=== PATIENT | female | born 1955 | race Caucasian/White ===

== ENCOUNTER 2017-10-09 13:21 | Inpatient (IN) | payer MEDICARE, BC ==
[~2017-10-09] VITALS: Ht 167.6 cm; Wt 75.8 kg
--- OUTSIDE RECORDS SUMMARY | ~2017-10-09 | XMS | Clinical Summary ---
Demographics + + + | Address | [address] | | | [place] [address] | + + + | Home Phone | | + + + | Preferred Language | Unknown | + + + | Marital Status | | + + + | Islam Affiliation | Unknown | + + + | Race | Unknown | + + + | Ethnic Group | Unknown | + + + Author + + + | Author | [facility] | + + + | Organization | [facility] | + + + | Address | Unknown | + + + | Phone | Unavailable | + + + Support + + + + + | Name | Relationship | Address | Phone | + + + + + | Nicholas Garber | [place] | [address] | | | | | [place] | | | | | [address] | | + + + + + Care Team Providers + +------+ + | Care Direct Sales Representative Name | Role | Phone | + +------+ + | Ishmael De La Torre DO | PP | | + +------+ + Allergies + + + + + + | Active Allergy | Reactions | Severity | Noted | Comments | | | | | Date | | + + + + + + | Fendiline | Other (See Comments) | Medium | 08/18/19 | Pt did not specify | | | | | 13 | | + + + + + + | Pregabalin | Other (See Comments) | Medium | 08/18/19 | Pt did not specify | | | | | 13 | | + + + + + + | Methadone | Other (See Comments) | Medium | 08/18/19 | Pt did not specify | | | | | 13 | | + + + + + + | Morphine | Other (See Comments) | Medium | 08/18/19 | Pt did not specify | | | | | 13 | | + + + + + + | Gabapentin | Other (See Comments) | Medium | 08/18/19 | Pt did not specify | | | | | 13 | | + + + + + + | Oxycodone | Other (See Comments) | Medium | 08/18/19 | Pt did not specify | | | | | 13 | | + + + + + + | Sulfa Antibiotics | Other (See Comments) | Medium | 08/18/19 | Pt did not specify | | | | | 13 | | + + + + + + | Vancomycin | Abdominal Pain | Low | 08/18/19 | Pt did not specify | | | | | 13 | | + + + + + + Current Medications + + +-------+---------+------+------+-------+ | Prescription | Sig. | Disp. | Refills | Star | End | Statu | | | | | | t | Date | s | | | | | | Date | | | + + +-------+---------+------+------+-------+ | fentaNYL | Place 1 patch onto | | | | | Activ | | (DURAGESIC) 75 | the skin every third | | | | | e | | MCG/HR | day. | | | | | | + + +-------+---------+------+------+-------+ | | Take by mouth. | | | | | Activ | | Oxycodone-Acetaminop | | | | | | e | | hen (PERCOCET PO) | | | | | | | + + +-------+---------+------+------+-------+ | simvastatin | Take 40 mg by mouth | | | | | Activ | | (ZOCOR) 40 MG tablet | nightly. | | | | | e | + + +-------+---------+------+------+-------+ | tiZANidine | Take 4 mg by mouth | | | | | Activ | | (ZANAFLEX) 4 MG | every 6 (six) hours | | | | | e | | tablet | as needed. | | | | | | + + +-------+---------+------+------+-------+ | zolpidem (AMBIEN) | Take 10 mg by mouth | | | | | Activ | | 10 MG tablet | nightly as needed. | | | | | e | + + +-------+---------+------+------+-------+ | lisinopril | Take 10 mg by mouth | | | | | Activ | | (PRINIVIL,ZESTRIL) | daily. | | | | | e | | 10 MG tablet | | | | | | | + + +-------+---------+------+------+-------+ | meloxicam (MOBIC) | Take 7.5 mg by mouth | | | | | Activ | | 7.5 MG tablet | daily. | | | | | e | + + +-------+---------+------+------+-------+ | nortriptyline | Take 75 mg by mouth | | | | | Activ | | (PAMELOR) 75 MG | nightly. | | | | | e | | capsule | | | | | | | + + +-------+---------+------+------+-------+ | cyclobenzaprine | Take 10 mg by mouth | | | | | Activ | | (FLEXERIL) 10 MG | 3 (three) times | | | | | e | | tablet | daily as needed. | | | | | | + + +-------+---------+------+------+-------+ Active Problems + + + | Problem | Noted Date | + + + | Low back pain | 10/01/2012 | + + + | Numbness | 08/18/2012 | + + + Family History + + +------+ + | Medical History | Relation | Name | Comments | + + +------+ + | Other (see comments) | Father | | "Gout" per patient | + + +------+ + | Cancer | Mother | | Breast | + + +------+ + | Diabetes | Other | | | + + +------+ + + +------+--------+ + | Relation | Name | Status | Comments | + +------+--------+ + | Father | | | | + +------+--------+ + | Mother | | | | + +------+--------+ + | Other | | | | + +------+--------+ + Social History + +-------+ +--------+------+ | Tobacco Use | Types | Packs/Day | Years | Date | | | | | Used | | + +-------+ +--------+------+ | Former Smoker | | | | | + +-------+ +--------+------+ + + +---------+ + | Alcohol Use | Drinks/We | oz/Week | Comments | | | ek | | | + + +---------+ + | No | | | | + + +---------+ + + + + | Sex Assigned at | Date Recorded | | | | + + + | Not on file | | + + + Last Filed Vital Signs + + + + | Vital Sign | Reading | Time Taken | + + + + | Blood Pressure | 143/86 | 11/02/2012 10:27 AM PDT | + + + + | Pulse | 103 | 11/02/2012 10:27 AM PDT | + + + + | Temperature | - | - | + + + + | Respiratory Rate | - | - | + + + + | Oxygen Saturation | - | - | + + + + | Inhaled Oxygen | - | - | | Concentration | | | + + + + | Weight | 74.8 kg (165 lb) | 11/02/2012 10:27 AM PDT | + + + + | Height | 172.7 cm (5' 8") | 11/02/2012 10:27 AM PDT | + + + + | Body Mass Index | 25.09 | 11/02/2012 10:27 AM PDT | + + + + Plan of Treatment + + + + + | Health Maintenance | Due Date | Last Done | Comments | + + + + + | Vaccine: | | | | | Dtap/Tdap/Td (1 - | 4 | | | | Tdap) | | | | + + + + + | Cervical Cancer | | | | | Screening (Pap) | 6 | | | + + + + + | Breast Cancer | | | | | Screening | 5 | | | | (Mammogram) | | | | + + + + + | Colon Cancer | | | | | Screening | 5 | | | | (Colonoscopy) | | | | + + + + + | Vaccine: Zoster (#1) | | | | | | 5 | | | + + + + + | Vaccine: Influenza | | | | | (Season Ended) | 8 | | | + + + + + Results Not on filefrom Last 3 Months Insurance + +--------+ +------+-------+ + | Payer | Benefi | Subscriber | Type | Phone | Address | | | t Plan | ID | | | | | | / | | | | | | | Group | | | | | + +--------+ +------+-------+ + | MEDICARE | MEDICA | xxxxxxxxxx | | | [address] | | | RE | | | | [place] [id number] | | | IP-OP | | | | | + +--------+ +------+-------+ + | PREMERA | PREMER | xxxxxxxxxxx | | | [address] [address] | | | A BLUE | x | | | [place] | | | CARD | | | | [phone] | + +--------+ +------+-------+ + + +--------+ +--------+ + + | Guarantor Name | Accoun | Relation to | Date | Phone | Billing Address | | | t Type | Patient | of | | | | | | | | | | + +--------+ +--------+ + + | FARZAD GARBER | Person | Self [birth year] Home: | [address] | | | al/Fam | | 1955 | [phone] [place] | | | [place] | | | [phone] | [phone] | + +--------+ +--------+ + +
--- OUTSIDE RECORDS SUMMARY | ~2017-10-09 | XMS | Clinical Summary ---
Demographics + + + | Address | [address] | | | [place] [address] | + + + | Home Phone | | + + + | Preferred Language | Unknown | + + + | Marital Status | | + + + | Jewish Affiliation | Unknown | + + + | Race | Unknown | + + + | Ethnic Group | Unknown | + + + Author + + + | Author | [facility] | + + + | Organization | [facility] | + + + | Address | Unknown | + + + | Phone | Unavailable | + + + Support + + + + + | Name | Relationship | Address | Phone | + + + + + | Nicholas Garber | [place] | [address] | | | | | [place] | | | | | [address] | | + + + + + Care Team Providers + +------+ + | Care Etcher Apprentice Name | Role | Phone | + [...] | xxxxxxxxxx | | | [address] | | | RE | | | | [place] [phone] | | | IP-OP | | | | | + +--------+ +------+-------+ + | PREMERA | PREMER | [phone] | | | [address] [address] | | | A BLUE | x | | | [place] | | | CARD | | | | [phone] | + +--------+ +------+-------+ + + +--------+ [...] [birth year] Home: | [address] | | | al/Fam | | 1955 | [phone] [place] | | | [place] | | | [address] | [phone] | + +--------+ +--------+ + +
--- OUTSIDE RECORDS SUMMARY | ~2017-10-09 | XMS | Clinical Summary ---
Demographics + + + | Address | [address] | | | [place] [address] | + + + | Home Phone | | + + + | Preferred Language | Unknown | + + + | Marital Status | | + + + | Mormonism Affiliation | 1013 | + + + | Race | Unknown | + + + | Ethnic Group | Unknown | + + + Author + + + | Author | [facility] | | | and [place] | + + + | Organization | [facility] | | | and [facility] | + + + | Address | Unknown | + + + | Phone | Unavailable | + + + Support + + +---------+ + | Name | Relationship | Address | Phone | + + +---------+ + | Nicholas Garber | [place] | Unknown | | + + +---------+ + Care Team Providers + +------+ + | Care Wood Sash And Frame Carpenter Name | Role | Phone | + +------+ + | Ishmael De La Torre DO | PP | | + +------+ + Allergies + + + + + + | Active Allergy | Reactions | Severity | Noted | Comments | | | | | Date | | + + + + + + | Gabapentin | Other (See Comments) | Low | 09/07/19 | Weight gain | | | | | 15 | (almost 100 lbs) | + + + + + + | Methadone | Other (See Comments) | Medium | 09/07/19 | hallucinations | | | | | 15 | | + + + + + + | Morphine | Other (See Comments) | Medium | 09/07/19 | hallucinations | | | | | 15 | | + + + + + + | Oxycodone | Other (See Comments) | Low | 09/07/19 | "sweaty & drowsy" | | | | | 15 | | + + + + + + | Pregabalin | Other (See Comments) | Medium | 09/07/19 | hallucinations | | | | | 15 | | + + + + + + | Sulfa Antibiotics | Rash | Low | 09/07/19 | | | | | | 15 | | + + + + + + | Vancomycin | Other (See Comments) | High | 09/07/19 | Kidney failure | | | | | 15 | | + + + + + + Current Medications + + +-------+---------+------+------+-------+ | Prescription | Sig. | Disp. | Refills | Star | End | Statu | | | | | | t | Date | s | | | | | | Date | | | + + +-------+---------+------+------+-------+ | buPROPion | Take 300 mg by mouth | | | | | Activ | | (WELLBUTRIN XL) 300 | every morning. | | | | | e | | mg 24 hr tablet | | | | | | | + + +-------+---------+------+------+-------+ | fentaNYL | Place 1 patch onto | | | | | Activ | | (DURAGESIC) 75 | the skin every 72 | | | | | e | | mcg/hr | hours. | | | | | | + + +-------+---------+------+------+-------+ | fexofenadine | Take 30 mg by mouth | | | | | Activ | | (WALLY) 30 MG | 2 times daily. | | | | | e | | tablet | | | | | | | + + +-------+---------+------+------+-------+ | fluticasone | 1 spray by Nasal | | | | | Activ | | (FLONASE) 50 | route Daily. | | | | | e | | mcg/nasal spray | | | | | | | + + +-------+---------+------+------+-------+ | lisinopril | Take 10 mg by mouth | | | | | Activ | | (PRINIVIL, ZESTRIL) | Daily. | | | | | e | | 10 mg tablet | | | | | | | + + +-------+---------+------+------+-------+ | LORazepam (ATIVAN) | Take 1 mg by mouth | | | | | Activ | | 1 mg tablet | every 6 hours as | | | | | e | | | needed for Anxiety. | | | | | | + + +-------+---------+------+------+-------+ | nortriptyline | Take 75 mg by mouth | | | | | Activ | | (PAMELOR) 75 mg | nightly. | | | | | e | | capsule | | | | | | | + + +-------+---------+------+------+-------+ | | Take 1 tablet by | | | | | Activ | | oxyCODONE-acetaminop | mouth every 4 hours | | | | | e | | hen (PERCOCET) | as needed for Pain. | | | | | | | 7.5-325 mg per | | | | | | | | tablet | | | | | | | + + +-------+---------+------+------+-------+ | simvastatin | Take 20 mg by mouth | | | | | Activ | | (ZOCOR) 40 mg tablet | nightly. | | | | | e | + + +-------+---------+------+------+-------+ | tiZANidine | Take 4 mg by mouth | | | | | Activ | | (ZANAFLEX) 4 mg | every 6 hours as | | | | | e | | tablet | needed. | | | | | | + + +-------+---------+------+------+-------+ | traZODone | Take 100-200 mg by | | | | | Activ | | (DESYREL) 100 mg | mouth nightly. | | | | | e | | tablet | | | | | | | + + +-------+---------+------+------+-------+ | Albuterol | Inhale 1 puff into | | | | | Activ | | (VENTOLIN IN) | the lungs as needed. | | | | | e | + + +-------+---------+------+------+-------+ Active Problems + + + | Problem | Noted Date | + + + | YVETTE (obstructive sleep apnea) | 09/08/2014 | + + + | HTN (hypertension) | 09/08/2014 | + + + | Fibromyalgia | 09/08/2014 | + + + | Spina bifida (HCC) | 09/08/2014 | + + + | Anxiety | 09/08/2014 | + + + | Claustrophobia | 09/08/2014 | + + + | Atrial fibrillation (HCC) | 09/08/2014 | + + + | Depression | 09/08/2014 | + + + | RLS (restless legs syndrome) | 09/08/2014 | + + + | Hypercholesteremia | 09/08/2014 | + + + | Chronic pain syndrome | 09/08/2014 | + + + | Asthma | 09/08/2014 | + + + Social History + + + +--------+ + | Tobacco Use | Types | Packs/Day | Years | Date | | | | | Used | | + + + +--------+ + | Former Smoker | Cigarettes | 0.5 | 8 | Quit: 06/23/1984 | + + + +--------+ + + +---+---+---+ | Smokeless Tobacco: | | | | | Never Used | | | | + +---+---+---+ + + +---------+ + | Alcohol Use [...] + + + | Blood Pressure | 127/66 | 09/10/2014519 PDT | + + + + | Pulse | 75 | 09/10/2014519 PDT | + + + + | Temperature | 36.2 C (97.2 F) | 09/10/2014519 PDT | + + + + | Respiratory Rate | 18 | 09/10/2014519 PDT | + + + + | Oxygen Saturation | 96% | 09/10/2014519 PDT | + + + + | Inhaled Oxygen | - | - | | Concentration | | | + + + + | Weight | 83.5 kg (184 lb 1.4 | 09/08/2014751 PDT | | | oz) | | + + + + | Height | 170.2 cm (5' 7.01") | 09/08/2014751 PDT | + + + + | Body Mass Index | 28.82 | 09/08/2014751 PDT | + + + + Plan of Treatment + + + + + | Health Maintenance | Due Date | Last Done | Comments | + + + + + | Hepatitis C | | | | | Screening | 5 | | | + + + + + | Vaccine: | | | | | Dtap/Tdap/Td (1 - | 4 | | | | Tdap) | | | | + + + + + | Vaccine: | | | | | Pneumococcal 19-64 | 4 | | | | (PPSV23 only) Medium | | | | | Risk (1 of 1 - | | | | | PPSV23) | | | | + + + + + | CERVICAL CANCER | | | | | SCREENING (PAP EVERY | 6 | | | | 3 YEARS 21-64 ) | | | | + + + + + | BREAST CANCER | | | | | SCREENING (MAMM Q2 | 5 | | | | YEARS 50-74) | | | | + + + + + | COLON CANCER | | | | | SCREENING | 5 | | | | (COLONOSCOPY EVERY | | | | | 10 YEARS 50-75) | | | | + + + + + | Vaccine: Zoster (#1) | | | | | | 5 | | | + + + + + | Vaccine: Influenza | | | | | (Season Ended) | 8 | | | + + + + + Implants + +------+--------+ +--------+--------+--------+ | Implanted | Type | Area | Manufacture | Device | Expira | Model | | | | | r | | tion | / | | | | | | Identi | Date | Serial | | | | | | fier | | / Lot | + +------+--------+ +--------+--------+--------+ | Imp Stem Hum Pressfit Eqx | | Right: | EXACTECH | | 07/24/ | 300-01 | | 13mm - [id number]: | | | INC - EXAT | | 2024 | -13 | | Qty: 1 on 09/08/2014 by | | Should | | | | /[id number] | | Manuel Muniz DO | | er | | | | 28 / | + +------+--------+ +--------+--------+--------+ | Equinoxe Cage Glenoid | | Right: | EXACTECH | | 02/21/ | 314-13 | | Implanted: Qty: 1 on | | | INC - EXAT | | 2018 | - | | 09/08/2014 by Flavio, | | Should | | | | /[id number] | | Manuel Delatorre DO | | er | | | | 61 / | + +------+--------+ +--------+--------+--------+ | Imp Shldr Honey Torq Defin - | | Right: | EXACTECH | | 06/23/ | 300-20 | | [id number]: Qty: 1 on | | | INC - EXAT | | 2019 | -02 | | 09/08/2014 by Flavio, | | Should | | | | /[id number] | | Manuel Delatorre DO | | er | | | | 52 / | + +------+--------+ +--------+--------+--------+ | Imp Lola Espinal Replic 4.5 | | Right: | EXACTECH | | 05/23/ | 300-10 | | - [id number]: Qty: 1 | | | INC - EXAT | | 2019 | -45 | | on 09/08/2014 by Flavio, | | Should | | | | /[id number] | | Manuel Delatorre DO | | er | | | | 67 / | + +------+--------+ +--------+--------+--------+ | Humeral HeadImplanted: Qty: 1 | | Right: | EXACTECH | | 01/09/ | 310-02 | | on 09/08/2014 by Flavio, | | | INC - EXAT | | 2021 | -44 | | Manuel Delatorre DO | | Should | | | | /[id number] | | | | er | | | | 22 / | + +------+--------+ +--------+--------+--------+ | Imp Shldsofie Tot Adv Interchg | | Right: | [employer] [place] - | | | [id number] / | | Adj - [id number]: | | | CAP | | | / | | Qty: 1 on 09/08/2014 by | | Should | | | | | | Manuel Muniz DO | | er | | | | | + +------+--------+ +--------+--------+--------+ Results Not on filefrom Last 3 Months Insurance + +--------+ +--------+ +---------+ | Payer | Benefi | Subscriber | Type | Phone | Address | | | t Plan | ID | | | | | | / | | | | | | | Group | | | | | + +--------+ +--------+ +---------+ | MEDICARE | MEDICA | xxxxxxxxxx | Medica | +- | | | | RE | | re | [phone] | | | | PART A | | | | | | | AND B | | | | | + +--------+ +--------+ +---------+ | [place] | [place] | xxxxxxxxxxx | Indemn | [phone] | | | [place] | x | ity | [phone] | | | | MDCR | | | | | | | SUPPL | | | | | + +--------+ +--------+ +---------+ + +--------+ +--------+ + + | Guarantor Name | Accoun | Relation to | Date | Phone | Billing Address | | | t Type | Patient | of | | | | | | | | | | + +--------+ +--------+ + + | FARZAD GARBER | Person | Self [birth year] | Home: | [address] | | [place] | al/Fam | | [phone] [place] [address] | | | [place] | | | [address] | | + +--------+ +--------+ + +
--- OUTSIDE RECORDS SUMMARY | ~2017-10-09 | XMS | Clinical Summary ---
Demographics + + + | Address | [address] | | | [place] [address] | + + + | Home Phone | | + + + | Preferred Language | Unknown | + + + | Marital Status | | + + + | Latter Day Affiliation | CAT | + + + | Race | White | + + + | Ethnic Group | Not or | + + + Author + + + | Author | [facility] | + + + | Organization | [facility] | + + + | Address | Unknown | + + + | Phone | Unavailable | + + + Support + + + + + | Name | Relationship | Address | Phone | + + + + + | EZIO GARBER | ECON | [address] | | | | | [place] | | | | | [address] | | + + + + + Care Team Providers + +------+ + | Care Lead Net Software Developer Name | Role | Phone | + +------+ + | Ishmael De La Torre DO | PP | | + +------+ + Source Comments ROHAN is fully live on both EpicCare Ambulatory and EpicCare InPatient.[facility] Allergies + + + + + + | Active Allergy | Reactions | Severity | Noted | Comments | | | | | Date | | + + + + + + | Fendiline | Nausea, Nausea and | | 04/06/20 | | | | Vomiting | | 08 | | + + + + + + | Pregabalin | | | 08/15/19 | hallucinations | | | | | 11 | | + + + + + + | Methadone | Hallucinations | | 08/09/19 | | | | | | 11 | | + + + + + + | Morphine | Hallucinations | Medium | 08/09/19 | | | | | | 11 | | + + + + + + | Gabapentin | | Medium | 08/09/19 | Weight gain. | | | | | 11 | | + + + + + + | Oxycodone | | High | 11/30/19 | sweating | | | | | 11 | | + + + + + + | Sulfa (Sulfonamide | Rash | High | 04/06/20 | | | Antibiotics) | | | 08 | | + + + + + + | Vancomycin | | High | 12/02/19 | Kidney failure | | | | | 11 | | + + + + + + Current Medications + + +-------+---------+------+------+-------+ | Prescription | Sig. | Disp. | Refills | Star | End | Statu | | | | | | t | Date | s | | | | | | Date | | | + + +-------+---------+------+------+-------+ | VITAMIN B COMPLEX | take 1 tablet by | | | | | Activ | | Oral Tablet | oral route once | | | | | e | | | daily | | | | | | + + +-------+---------+------+------+-------+ | lorazepam 2 mg | take 1 tablet (1 mg) | | | | | Activ | | Oral Tablet | by oral route 3 | | | | | e | | | times per day as | | | | | | | | needed | | | | | | + + +-------+---------+------+------+-------+ | simvastatin 40 mg | take 1 tablet (40 | | | | | Activ | | Oral Tablet | mg) by oral route | | | | | e | | | once daily in the | | | | | | | | evening | | | | | | + + +-------+---------+------+------+-------+ | ALBUTEROL SULFATE | Inhale as needed. | | | 07/24 | | Activ | | (VENTOLIN INHL) | | | | 01/09 | | e | | | | | | 11 | | | + + +-------+---------+------+------+-------+ | meloxicam 7.5 mg | Take 7.5 mg by mouth | | | | | Activ | | Oral Tablet | two times daily. | | | | | e | + + +-------+---------+------+------+-------+ | fentaNYL 75 mcg/hr | Apply 1 Patch to | | | | | Activ | | Transdermal Patch | skin every | | | | | e | | 72 hr | seventy-two hours. | | | | | | + + +-------+---------+------+------+-------+ | tiZANidine | Take 2 mg by mouth | | | | | Activ | | (ZANAFLEX) 2 mg Oral | as needed. Max: 36 | | | | | e | | Tablet | mg / day. | | | | | | + + +-------+---------+------+------+-------+ | | Take 1-2 Tabs by | | | | | Activ | | oxyCODONE-acetaminop | mouth every six | | | | | e | | hen (PERCOCET) 5-325 | hours as needed. Not | | | | | | | mg Oral Tablet | to exceed 12 | | | | | | | | tablets per any 24 | | | | | | | | hour period. | | | | | | + + +-------+---------+------+------+-------+ | nortriptyline 75 | Take 150 mg by mouth | | | | | Activ | | mg Oral Capsule | once daily at | | | | | e | | | bedtime. | | | | | | + + +-------+---------+------+------+-------+ | ZOLPIDEM TARTRATE | Take 20 mg by mouth | | | | | Activ | | (AMBIEN ORAL) | once daily at | | | | | e | | | bedtime. | | | | | | + + +-------+---------+------+------+-------+ | FEXOFENADINE HCL | Take by mouth as | | | | | Activ | | (WALLY ORAL) | needed. | | | | | e | + + +-------+---------+------+------+-------+ | lisinopril 10 mg | Take 10 mg by mouth | | | | | Activ | | Oral tablet | once daily. | | | | | e | + + +-------+---------+------+------+-------+ | cyclobenzaprine 10 | Take 10 mg by mouth | | | | | Activ | | mg Oral tablet | three times daily as | | | | | e | | | needed. Do not use | | | | | | | | longer than 2-3 | | | | | | | | weeks. | | | | | | + + +-------+---------+------+------+-------+ | buPROPion XL 300 | Take 300 mg by mouth | | | | | Activ | | mg Oral tablet | once daily in the | | | | | e | | extended release 24 | morning. | | | | | | | hr | | | | | | | + + +-------+---------+------+------+-------+ Active Problems + + + | Problem | Noted Date | + + + | Shoulder pain | 03/09/2012 | + + + | Hypertension | 02/18/2011 | + + + | Fibromyalgia | 02/18/2011 | + + + | S/P catheter ablation of slow pathway | 02/18/2011 | + + + | SVT (supraventricular tachycardia) ([facility]) | 12/03/2010 | + + + | Bone infection, shoulder region ([facility]) | 08/09/2010 | + + + | HTN (hypertension) | 08/09/2010 | + + + + + | Overview: ICD10 | + + + + + | Myalgia and myositis | 04/08/2008 | + + + + + | Overview: ICD10 | + + Family History + + +------+ + | Medical History | Relation | Name | Comments | + + +------+ + | Heart Disease | Mother | | CHF from Breast cancer therapy | + + +------+ + + +------+--------+ + | Relation | Name | Status | Comments | + +------+--------+ + | Mother | | | | + +------+--------+ + Social History + + + +--------+ + | Tobacco Use | Types | Packs/Day | Years | Date | | | | | Used | | + + + +--------+ + | Former Smoker | Cigarettes | 2 | 3 | Quit: 06/23/1983 | + + + +--------+ + + [...] + + + | Blood Pressure | 127/83 | 02/25/2013 12:06 PM PDT | + + + + | Pulse | 95 | 02/25/2013 12:06 PM PDT | + + + + | Temperature | 36.7 C (98.1 F) | 02/28/2012 2:49 PM PDT | + + + + | Respiratory Rate | 15 | 02/25/2013 12:06 PM PDT | + + + + | Oxygen Saturation | 98% | 02/28/2012 2:49 PM PDT | + + + + | Inhaled Oxygen | - | - | | Concentration | | | + + + + | Weight | 86.2 kg (190 lb) | 04/07/2014 10:40 AM PDT | + + + + | Height | 175.3 cm (5' 9") | 04/07/2014 10:40 AM PDT | + + + + | Body Mass Index | 28.06 | 04/07/2014 10:40 AM PDT | + + + + Plan of Treatment + + + + + | Health Maintenance | Due Date | Last Done | Comments | + + + + + | INFLUENZA VACCINE | | | | | (FLU SHOT) | 8 | | | + + + + + Results Not on filefrom Last 3 Months
--- OUTSIDE RECORDS SUMMARY | ~2017-10-09 | XMS | Clinical Summary ---
Demographics + + + | Address | [address] | | | [place] [address] | + + + | Home Phone | | + + + | Preferred Language | Unknown | + + + | Marital Status | | + + + | Mosque Affiliation | Unknown | + + + | Race | Unknown | + + + | Ethnic Group | Unknown | + + + Author + + + | Author | [facility] | + + + | Organization | [facility] | + + + | Address | Unknown | + + + | Phone | Unavailable | + + + Support + + + + + | Name | Relationship | Address | Phone | + + + + + | Nichloas Garber | [place] | [address] | | | | | [place] | | | | | [address] | | + + + + + Care Team Providers + +------+ + | Care Event Representative Name | Role | Phone | [...] | [phone] | | | [address] | | | RE | | | | [place] [phone] | | | IP-OP | | | | | + +--------+ +------+-------+ + | PREMERA | PREMER | [phone] | | | [address] [address] | | | A BLUE | [phone] | | | [place] | | | CARD | | | | [phone] | + +--------+ +------+-------+ + + +--------+ +--------+ + + | Guarantor Name | Accoun | Relation to | Date | Phone | Billing Address | | | t Type | Patient | of | | | | | | | | | | + +--------+ +--------+ + + | FARZAD GARBER | Person | Self [birth year] Home: | [address] | | | al/Fam | | [phone] | [phone] | [place] | | | [place] | | | [phone] | [phone] | + +--------+ +--------+ + +
--- OUTSIDE RECORDS SUMMARY | ~2017-10-09 | XMS | Clinical Summary ---
Demographics + + + | Address | [address] | | | [place] [address] | + + + | Home Phone | | + + + | Preferred Language | Unknown | + + + | Marital Status | | + + + | Uatsdin Affiliation | 1013 | + + + | Race | Unknown | + + + | Ethnic Group | Unknown | + + + Author + + + | Author | [facility] | | | and [place] | + + + | Organization | [facility] | | | and [place] [...] Team Providers + +------+ + | Care Quality Technician Fiberglass Name | Role | Phone | + [...] 07/24/ | 300-01 | | 13mm - [id number]: | | | INC - EXAT | | 2024 | -13 | | Qty: 1 on 09/08/2014 by | | Should | | | | /[id number] | | Manuel Muniz DO | | er | | | | 28 / | + +------+--------+ +--------+--------+--------+ | Equinoxe Cage Glenoid | | Right: | EXACTECH | | 02/21/ | 314-13 | | Implanted: Qty: 1 on | | | INC - EXAT | | 2018 | - | | 09/08/2014 by Flavio, | | Should | | | | /[id number] | | Manuel Delatorre DO | | er | | | | 61 / | + +------+--------+ +--------+--------+--------+ | Imp Shldr Honey Torq Defin - | | Right: | EXACTECH | | 06/23/ | 300-20 | | [id number]: Qty: 1 on | | | INC - EXAT | | 2019 | -02 | | 09/08/2014 by Flavio, | | Should | | | | /[id number] | | Manuel Delatorre DO | | er | | | | 52 / | + +------+--------+ +--------+--------+--------+ | Imp Lola Espinal Replic 4.5 | | Right: | EXACTECH | | 05/23/ | 300-10 | | - [id number]: Qty: 1 | | | INC - EXAT | | 2019 | -45 | | on 09/08/2014 by Flavio, | | Should | | | | /[id number] | | Manuel Delatorre DO | | er | | | | 67 / | + +------+--------+ +--------+--------+--------+ | Humeral HeadImplanted: Qty: 1 | | Right: | EXACTECH | | 01/09/ | 310-02 | | on 09/08/2014 by Flavio, | | | INC - EXAT | | 2021 | -44 | | Manuel Delatorre DO | | Should | | | | /[id number] | | | | er | | | | 22 / | + +------+--------+ +--------+--------+--------+ | Imp Shldsofie Tot Adv Interchg | | Right: | [place] - | | | OS1A / | | Adj - [id number]: | | | CAP | | | [...] | [phone] | [phone] | [place] [address] | | | leo | | | [address] | | + +--------+ +--------+ + +
--- OUTSIDE RECORDS SUMMARY | ~2017-10-09 | XMS | Clinical Summary ---
Demographics + + + | Address | [address] | | | [place] [address] | + + + | Home Phone | | + + + | Preferred Language | Unknown | + + + | Marital Status | | + + + | Islam Affiliation | CAT | + + + [...] [place] | | | | | [address] | | + + + + + Care Team Providers + +------+ + | Care Industrial Relations Manager Name | Role | Phone | + +------+ + | Ishmael De La Torre DO | PP | | + +------+ + Source Comments ROHAN is fully live on both EpicCare Ambulatory and EpicCare InPatient.[facility] Allergies + + + + + + [...] + + + | SVT (supraventricular tachycardia) ([facility]) | 12/03/2010 | + + + | Bone infection, shoulder region ([facility]) | 08/09/2010 | + + + [...]
--- OUTSIDE RECORDS SUMMARY | ~2017-10-09 | XMS | Clinical Summary ---
Demographics + + + | Address | [address] | | | [place] [address] | + + + | Home Phone [...] [place] | | | | | [phone] | | + + + + + Care Team Providers + +------+ + | Care Supervisor Veneer Name | Role | Phone | + +------+ + | Ishmael De La Torre DO | PP | | + +------+ + Source Comments ROHAN is fully live on both EpicCare Ambulatory and EpicCare InPatient.[facility] Allergies + + + + + + [...] + + + | SVT (supraventricular tachycardia) ([facility]) | 12/03/2010 | + + + | Bone infection, shoulder region ([facility]) | 08/09/2010 | + + + | [...]
--- OUTSIDE RECORDS SUMMARY | ~2017-10-09 | XMS | Clinical Summary ---
Demographics + + + | Address | [address] | | | [place] [address] | + + + | Home Phone | | + + + | Preferred Language | Unknown | + + + | Marital Status | | + + + | Holiness Affiliation | 1013 | + + + | Race | Unknown | + + + | Ethnic Group | Unknown | + + + Author + + + | Author | [facility] | | | and [place] | + + + | Organization | [facility] | | | and [place] | [...] Team Providers + +------+ + | Care Cartridge Maker Name | Role | Phone | + [...] 07/24/ | 300-01 | | 13mm - [id number]: | | | INC - EXAT | | 2024 | -13 | | Qty: 1 on 09/08/2014 by | | Should | | | | /[id number] | | Manuel Muniz DO | | er | | | | 28 / | + +------+--------+ +--------+--------+--------+ | Equinoxe Cage Glenoid | | Right: | EXACTECH | | 02/21/ | 314-13 | | Implanted: Qty: 1 on | | | INC - EXAT | | 2018 | - | | 09/08/2014 by Flavio, | | Should | | | | /[id number] | | Manuel Delatorre DO | | er | | | | 61 / | + +------+--------+ +--------+--------+--------+ | Imp Shldr Honey Torq Defin - | | Right: | EXACTECH | | 06/23/ | 300-20 | | [id number]: Qty: 1 on | | | INC - EXAT | | 2019 | -02 | | 09/08/2014 by Flavio, | | Should | | | | /[id number] | | Manuel Delatorre DO | | er | | | | 52 / | + +------+--------+ +--------+--------+--------+ | Imp Lola Espinal Replic 4.5 | | Right: | EXACTECH | | 05/23/ | 300-10 | | - [id number]: Qty: 1 | | | INC - EXAT | | 2019 | -45 | | on 09/08/2014 by Flavio, | | Should | | | | /[id number] | | Manuel Delatorre DO | | er | | | | 67 / | + +------+--------+ +--------+--------+--------+ | Humeral HeadImplanted: Qty: 1 | | Right: | EXACTECH | | 01/09/ | 310-02 | | on 09/08/2014 by Flavio, | | | INC - EXAT | | 2021 | -44 | | Manuel Delatorre DO | | Should | | | | /[id number] | | | | er | | | | 22 / | + +------+--------+ +--------+--------+--------+ | Imp Shldsofie Tot Adv Interchg | | Right: | [place] - | | | OS1A / | | Adj - [id number]: | | | CAP | | | [...] | [phone] | [phone] | [place] [address] | | | leo | | | [phone] | | + +--------+ +--------+ + +
[~2017-10-09 13:21] MED LIST: ATIVAN2 MG PO; COLACE100 MG PO; FENTANYL1 EAC6 TD; LISINOPRIL10 MG PO; MOBIC15 MG PO; NORTRIPTYLINE H75 MG PO; OMEPRAZOLE40 MG PO; PERCOCET 7.5-31 EACH PO; TRAZODONE HCL100 MG PO; VENTOLIN HFA18 GM INH; WELLBUTRIN XL300 MG PO; ZANAFLEX4 MG PO
[2017-10-09] MEDS ORDERED: ROXICODONE30 MG PO (13:46)
[2017-10-09] MEDS ORDERED: SIMVASTATIN40 MG PO (13:46)
[2017-10-09] MEDS ORDERED: OXYCODONE HCL10 MG PO (13:46)
[2017-10-09] MEDS ORDERED: BUSPIRONE HCL7.5 MG PO (13:47)
[2017-10-09] MEDS ORDERED: MELOXICAM7.5 MG PO (13:47)
--- NOTE | 2017-10-09 18:55 | NUR ---
GUO CATH PLACED, PT HERBERT WELL, 300 ML URINE RETURNED. IV SITE INTACT, NO REDNESS OR SWELLING NOTED, PT DENIES PAIN WITH FLUSH, FLUIDS INFUSING EASILY.
--- NOTE | 2017-10-09 20:52 | EKG ---
[facility] [address] [facility] [place] [address] Signed Sinus tachycardia Anteroseptal infarct , age undetermined Abnormal ECG No previous ECGs available Confirmed by LINDA DONAHUE MD ([id number]) on 10/09/2017 8:52:49 PM Electronically Signed By: LINDA DONAHUE MD 10/09/172051 PATIENT NAME: FARZAD WHITT Electrocardiogram DATE OF : 55 PHYSICIAN: LINDA DONAHUE MD REPORT #: [id number] REPORT IS CONFIDENTIAL AND NOT TO BE RELEASED WITHOUT AUTHORIZATION
--- NOTE | 2017-10-09 23:15 | NUR ---
PT'S IV SITE NO INTACT, LEAKING, REDDENED, AND NOT FLUSHING. THE LAST TWO HOURS IVF AND ABX HAVE BEEN STOPPED IN ATTEMPTING TO GAIN IV ACCESS, PT WAS POKED TOTAL OF 6X BY THREE NURSES USING US MACHINE. 24# PLACED IN LEFT HAND, PT VERBALIZES CONSENT TO USE LEFT SIDE. IVF AND ABX RESUMED. HR REMAINS ELEVATED 115. UP TO BSC FOR LIQUID BROWN STOOL, BACK TO BED AND WANTING TO REST AND TRY TO SLEEP NOW.
--- NOTE | 2017-10-10 00:13 | NUR ---
ASSESSMENT DONE, PT POSITIONED UP IN BED. DENIES NEEDS AT THIS TIME, CALL LIGHT IN HAND, IS GOING TO TRY TO SLEEP NOW.
--- NOTE | 2017-10-10 01:27 | NUR ---
SPOKE TO DR DONAHUE REGARDING URINE OUTPUT DROPPING OFF, ORDER GIVEN FOR 500ML LR BOLUS AND INCREASE IVF TO 150ML/HR.
--- NOTE | 2017-10-10 02:46 | NUR ---
UP TO BSC FOR LIQUID BROWN STOOL. BOLUS INFUSING. PT HAS BEEN ENCOURAGED TO KEEP DRINKING BOWEL PREP, STATES "I FEEL TOO FULL, ILL GET TO IT". 4MG IV ZOFRAN GIVEN FOR NAUSEA TO HELP PT TOLERATE BOWEL PREP. PT C/O HEADACHE AND 9/10 CHRONIC BODY PAIN, 10MG OXYCODONE GIVEN.
--- NOTE | 2017-10-10 05:24 | NUR ---
PT UP TO BR FOR LIQUID BROWN STOOL, BACK TO BED, HR UP TO 115 FROM 105 WHILE UP THEN BACK DOWN. DENIES NEEDS AT THIS TIME, DENIES SOB, STATES PAIN IS AT HER NORMAL LEVEL 6/10 "I NEVER GO BELOW A 6", DENIES NAUSEA.
--- NOTE | 2017-10-10 05:50 | NUR ---
LAB IN TO DRAW
--- NOTE | 2017-10-10 07:45 | NUR ---
NIGHT NURSE IN ASSISTING WITH PT. PT PASSED A BM IN BED, UP TO BATHROOM NOW STANDBY ASSIST. PT LOOKS TIRED AND STATES "I ONLY HAD A FEW HOURS OF SLEEP". PT BACK TO BED, DENIES SOB AND NAUSEA, BUT STATES PAIN AND BLOAT IN ABDOMEN. CURRENTLY SIPPING ON BOWEL PREP MIXTURE, BUT STATES "IT MAKES ME FEEL BLOATED AND I DO NOT WANT TO DRINK ANYMORE" ENCOURAGED PT IT IS IMPORTANT SHE DRINKS THE MIXTURE TO HELP PREP HER FOR HER PROCEDURE. PT HESITENT, BUT WILLING TO FINISH. PT BACK UP TO BATHROOM STAND BY ASSIST, LIQUID STOOL. PT VITALS WNL BESIDES HR OF 106 WHICH HAS BEEN BASELINE FOR HER SINCE ARRIVAL. ADMINISTERED PAIN MED OXY 15MG PT STATES PAIN IS A LEVEL 10. PT NOW RESTING BACK IN BED, CALL LIGHT WITHIN REACH, WILL CONTINUE TO MONITOR CLOSELY.
--- NOTE | 2017-10-10 08:46 | NUR ---
IV PLACED BY ELECTRICAL DESIGN TECHNOLOGIST.
[2017-10-10] MEDS ORDERED: OXYCONTIN30 MG PO (09:26)
[2017-10-10] MEDS ORDERED: BUSPIRONE HCL7.5 MG PO (10:18)
[2017-10-10] MEDS ORDERED: TIZANIDINE HCL4 MG PO (10:20)
[2017-10-10] MEDS ORDERED: GAS-X125 M1 PO (10:21)
[2017-10-10] MEDS ORDERED: BENADRYL25 MG PO (10:22)
--- NOTE | 2017-10-10 10:34 | NUR ---
MED REC COMPLETE
--- NOTE | 2017-10-10 11:27 | NUR ---
PT RESTING IN BED TALKING TO SITTING AT BEDSIDE. PT TO CONTINUE BOWEL PREP, BUT PT STATES, "I CAN'T DRINK ANYMORE OF THAT" AND THIS STUDENT ENCOURAGED PT TO CONTINUE PREP IN ORDER TO EMPTY BOWEL FOR PROCEDURE. PT RELUCTANT BUT STATES SHE WILL TRY. PT DENIES SOB OR NAUSEA. CALL LIGHT WITHIN REACH. WILL CONTINUE TO MONITOR CLOSELY.
--- NOTE | 2017-10-10 12:34 | NUR ---
PT RESTING IN BED, STATES PAIN LEVEL IS TOLERABLE AT THIS TIME AT AN 8. ENCOURAGED PT TO NOTIFY US IF PAIN BEGINS TO INCREASE. PT VERBALIZES UNDERSTANDING. PT PASSED BM IN BED WHILE ATTEMPTING TO REACH COMMODE. FRESH LINEN CHANGE. PT BACK IN BED RESTING WITH CALL LIGHT WITHIN REACH.
--- NOTE | 2017-10-10 13:47 | NUR ---
PT RESTING IN BED-ALERT AND ORIENTED. PT STATED THAT SHE HAS HAD NUMEROUS TIMES IN HOSPITAL, AND HOW CARING AND ATTENTIVE STAFF HAVE BEEN FOR HER. PT DID REQUEST PRAYER, WILL FOLLOW NEEDED
--- NOTE | 2017-10-10 14:04 | NUR ---
PT ATTEMPTED TO AMBULATE TO COMMODE PRIOR TO BM, BUT WAS UNSUCCESSFUL. FRESH LINEN CHANGE. PT STATES PAIN LEVEL RISING TO 9/10, BUT DENIES SOB OR NAUSEA AT THIS TIME.
--- NOTE | 2017-10-10 19:07 | NUR ---
PT CONTINUES BOWEL PREP. MULTIPLE BM (>10) BOTH IN BED AND AT BEDSIDE COMMODE. PT HAS TROUBLE GETTING TO COMMODE DUE TO INVOLUNTARY BM. PT STATES "I DONT WANT TO DRINK ANYMORE OF THIS BOWEL PREP MIXTURE" BUT ENCOURAGEMENT FROM AND THIS STUDENT RN HAS INCREASED COMPLIANCE. PT CONTINUES TO HAVE PAIN ALL OVER STATING AROUND AN 8-10 DEPENDING. LAST PAIN MED AT 14:30. PT VITALS WNL OTHER THAN HR HAS STAYED TACHY (BASELINE SINCE SHE HAS BEEN HERE). DENIES SOB AND NAUSEA.
--- NOTE | 2017-10-10 19:20 | NUR ---
THIS RN HAS REVIEWED ALL CHARTING BY STUDENT NURSE ANDRES, I AM IN AGREEMENT WITH HER ASSESSMENTS, AND HER CHARTING.
--- NOTE | 2017-10-10 19:45 | NUR ---
PT UP TO BSC FOR LIQUID STOOL, STILL THICK BROWN LIQUID APPROX 300ML. BACK TO BED CALL LIGHT IN REACH
--- NOTE | 2017-10-10 20:10 | NUR ---
DR AMARO IN TO SEE PT AND DISCUSS PLAN OF CARE.
--- NOTE | 2017-10-10 20:45 | NUR ---
IN TO DO HS MED AND ASSESSMENT. PT GIVEN 15MG OXYCODONE FOR CHRONIC BODY PAIN AND ABDOMINAL PAIN PER REQUEST. ALSO HAD C/O SEASONAL ALLERGIES AND REQUESTED BENEDRYL. STILL SIPPING ON BOWEL PREP SLOWLY, REMINDED OF IMPORTANCE OF CLEANING OUT BOWELS FOR SCOPE AND ENCOURAGED TO DRINK. UP TO BSC FOR LIQUID BROWN STOOL, STARTING TO CLEAR UP SOME BUT STILL FAIRLY THICK. PT BACK TO BED, ENCOURAGED TO DO IS, WEAK EFFORT. LUNGS CLEAR.
--- NOTE | 2017-10-10 22:02 | NUR ---
ANGLE BENDER IN TO LOOK FOR IV ACCESS, 20# PLACED IN RIGHT ARM.
--- NOTE | 2017-10-11 00:22 | NUR ---
UP TO BSC, VERY SMALL STOOL THEN BACK TO BED.
--- NOTE | 2017-10-11 02:35 | NUR ---
PT RESTING WITH EYES CLOSED, RR 22, HR 97.
--- NOTE | 2017-10-11 04:40 | NUR ---
PT UP TO BSC, INC LARGE AMT LIQUID STOOL ALL OVER FLOOR AND BED, STARTING TO BE A MORE CLEAR LIQUID. PT REMINDED OF NPO STATUS. ASSESSMENT UNCHANGED FROM PREVIOUS. HR REMAINS 100-105, RR 22 DENIES PAIN/SOB
--- NOTE | 2017-10-11 08:05 | NUR ---
PT ASSISTED TO BEDSIDE COMMODE. CALL LIGHT WITHIN REACH.
--- NOTE | 2017-10-11 08:20 | NUR ---
PT BACK TO BED, SMALL LIQUID BM NOTED.
--- NOTE | 2017-10-11 09:05 | NUR ---
PT AWAKE AND ALERT X4 AT THIS TIME.
--- NOTE | 2017-10-11 09:13 | NUR ---
REGULAR MEDS GIVEN FOR ANXIETY WITH SMALL SIP OF WATER. KAITLIN ASKEW. PT VERBALIZES UNDERSTANDING OF PROCEDURE THAT IS GOING TO TAKE PLACE SHORTLY. PT GUO IN PLACE, GLASSES OFF. SPOUSE IS AT THE BEDSIDE. PT DENIES NAUSEA, SOB, C/O 6/10 PAIN AT THIS TIME, DENIES NEED FOR OXYCODONE AT THIS TIME. PT ALERT AND ORIENTED X4. VITALS WNL. IV SITES INTACT, NO SWELLING OR REDNESS NOTED, BOTH SITES FLUSH EASILY.
--- NOTE | 2017-10-11 09:20 | NUR ---
IV SITE IN RT WRIST HAS RED STRIATION GOING UP ARM FROM SITE. IV ABX AND IV FLUIDS STOPPED IMMEDIATLY. PT DENIES PAIN AT THIS SITE. NO SWELLING NOTED.
--- NOTE | 2017-10-11 10:32 | NUR ---
PT BEING RECOVERED IN ICU ROOM 127 BY PACU NURSE SHIMON.
--- NOTE | 2017-10-11 10:48 | NUR ---
10/11/17 1048 Es Shankar PATIENT FOLLOWS INSTRUCTIONS TO OPEN MOUTH FOR ORAL AIRWAY TO BE REMOVED. OXYGEN SATURATION REMAINS 100% ON 6L VIA MASK. OXYGEN REMOVED @ THIS TIME.
--- NOTE | 2017-10-11 11:05 | NUR ---
FULL REPORT GIVEN BY SHIMON TO THIS RN, PT NOW OUT OF PACU PHASE.
--- NOTE | 2017-10-11 11:12 | NUR ---
PO MEDS GIVEN FOR PAIN 9/10 REPORTED BY PT 15 MG OXYCODONE. PT ABLE TO HERBERT PO FLUIDS WELL, REQUESTS JUICE. PT ALSO GIVEN SCHEDULED MEDS. IV FLUIDS RESTARTED IN LEFT IV SITE.
--- NOTE | 2017-10-11 12:06 | NUR ---
PT SLEEPING SOUNDLY AT THIS TIME.
--- NOTE | 2017-10-11 13:00 | NUR ---
IV SITE DC'D IN RT WRIST DUE TO REDNESS AND PHLEBITS EARLIER DURING AN ATTEMPT TO INFUSE FLUIDS. IV SITE IN LEFT HAND INTACT, FLUSHES EASILY, NO SWELLING NOTE, FLUIDS INFUSING EASILY. PT ALERT AND ORIENTED X4, STATES "I FEEL SO MUCH BETTER SINCE THE PROCEDURE". PT DENIES NAUSEA AND SOB. PT STATES HER PAIN IS "BETTER". PT REPORTS PASSING LARGE AMOUNTS OF FLATUS. PT ABLE TO HERBERT PO JUCIE AND WATER WELL.
[2017-10-11] MEDS ORDERED: ZANAFLEX4 MG PO (13:27)
[2017-10-11] MEDS ORDERED: TIZANIDINE HCL4 MG PO (13:28)
[2017-10-11] MEDS ORDERED: METRONIDAZOLE500 MG PO (13:30)
[2017-10-11] MEDS ORDERED: DICYCLOMINE HCL10 MG PO (13:30)
[2017-10-11] MEDS ORDERED: CIPROFLOXACIN500 MG PO (13:30)
--- NOTE | 2017-10-11 14:00 | NUR ---
FULL REPORT GIVEN TO CHE HERRMANN FROM MED/SURG.
--- NOTE | 2017-10-11 17:47 | NUR ---
PT IS SITTING UP IN BED EATING HER DINNER WITH CALL LIGHT IN REACH. PT DID NOT NEED ANYTHING AT THE MOMENT
--- NOTE | 2017-10-11 18:30 | NUR ---
CCU TRANSFER. HAD COLONOSCOPY THAT SHOWED COLITIS. GUO DRAINING URINE. SELF CATHETERIZES AT HOME. MANY BMs THIS MORNING D/T BOWEL PREPPED YESTERDAY. MAG RIDERS X2 TODAY. CIPRO AND FLAGYL PO. D5LR @ 100. LOW FIBER DIET. BENTYL AND OXYCODONE FOR PAIN. MAY GO HOME TOMORROW OR FRIDAY. SBA.
--- NOTE | 2017-10-11 19:00 | NUR ---
SHIFT REPORT RECEIVED. PATIENT RESTING IN BED. SHE REPORTS PAIN IS CONTROLLED AT THIS TIME. IV FLUIDS INFUSING PER ORDER, SITE WNL. PATIENT REQUEST WATER WHICH WAS GIVEN TO HER. NO OTHER NEEDS AT THIS TIME.
--- NOTE | 2017-10-11 20:08 | NUR ---
Charge nurse note: Pt AA&O x3. Up to brp, had liquid bm, f/c patent, draining, clear yellow urine, IV site intact. No c/o pain or requests
--- NOTE | 2017-10-11 21:30 | NUR ---
EVENING MEDS GIVEN PER ORDER. PATIENT REQUESTED PRN OXY 10MG AND PRN BENADRYL WHICH WERE PROVIDED TO HER. PAIN IS 9/10, GENERALIZED CHRONIC PAIN AND SOME ABD CRAMPING. PATIENT HAS BEEN TOLERATING LOW FIBER DIET AND DRINKING ADEQUATE FLUIDS. DISCUSSED THIS WITHDR. DONAHUE AND HE AGREED TO SALINE LOCK PATIENT AT THIS TIME. PATIENT IS ON ROOM AIR, LUNGS ARE CLEAR. ABD IS MILDLY DISTENDED AND TENDER, BOWEL SOUNDS ACTIVE. PATIENT HAS BEEN HAVING SMALL LIQUID BMS. GUO IN PLACE, OUTPUT QS. URINE IS CLEAR YELLOW.
--- NOTE | 2017-10-12 | NUR ---
PATIENT'S BP WAS 90/67 DURING PM VITALS. RN NOT NOTIFIED. REASSESSED PATIENT AT THIS TIME. SHE IS RESTING IN BED. NONSYMPTOMATIC. MANUAL BP 106/54.
--- NOTE | 2017-10-12 02:45 | NUR ---
PATIENT WOKE AND WAS FEELING INCREASED PAIN. REQUESTED PRN PAIN MEDS, WHICH WERE GIVEN. PATIENT FEELS THAT SHE HAS BEEN RESTING WELL. HER BOWEL MOVMENTS HAVE DECREASED, SHE HAS HAD ONLY 2 LOOSE STOOLS TONIGHT. SHE IS INTERESTED IN TAKING A SHOWER TODAY AND I LET HER KNOW THAT WE CAN DO IT AT ANY TIME. SHE IS GOING TO TRY TO SLEEP MORE AT THIS TIME. GUO EMPTIED. OUTPUT IS QS, STRAW COLOR.
--- NOTE | 2017-10-12 06:08 | NUR ---
PATIENT RESTED ON AND OFF THROUGHOUT THE NIGHT. PAIN CONTROLED WITH PRN OXY X3. OUTPUT QS, ORAL INTAKE ADEQUATE. PATIENT NOW SALINE LOCKED. ABD CRAMPING HAS DECREASED. PATIENT REPORTS HER FREQUENT LOOSE STOOLS HAVE ALSO DECREASED. ORAL ABX PER ORDER. MORNING LABS DONE. PATIENT INDEPENDENT IN ROOM SBA WHEN NEEDED.
--- NOTE | 2017-10-12 07:35 | NUR ---
BEDSIDE REPORT RECEIVED FROM LIONEL HERRMANN. WHITE BOARD UPDATED. PATIENT SITTING UP IN RECLINER. PATIENT HOPEFUL TO GO HOME TODAY.
--- NOTE | 2017-10-12 08:16 | NUR ---
PATIENT IN RESTROOM DOING ORAL CARE AND BED BATH. PATIENT STATES PAIN LEVEL IS A 9 OUT OF 10 AND IS REQUESTING PAIN MEDICATION. RN NOTIFIED. PATIENT STATES THAT SHE WOULD LIKE TO GO AMBULATE IN THE HALLWAYS. FRESH ICE WATER. CALL LIGHT WITHIN REACH. NO OTHER NEEDS AT THIS TIME.
--- NOTE | 2017-10-12 09:58 | NUR ---
PATIENT SITTING UP IN BED RELAXING WITH EYES CLOSED. FRESH ICE WATER. CALL LIGHT WITHIN REACH. NO OTHER NEEDS AT THIS TIME.
--- NOTE | 2017-10-12 11:39 | NUR ---
pt dressed and ready to go home. Donita, pharmacist, to provide medication education before discharge as well as the nurse about follow up appointments. iv removed. catheter intact.
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
--- NOTE | 2017-10-14 11:56 | OR ---
[facility] [address] [facility] [place], [place] [address] Signed DATE OF OPERATION: 10/11/2017 SURGEON: Claudine Amaro MD PREOPERATIVE DIAGNOSES: Abdominal pain, white count elevation, chronic constipation, and CT scan findings suggestive of an inflammation of transverse colon. POSTOPERATIVE DIAGNOSIS: Ischemic colitis of transverse colon and proximal descending colon. PROCEDURE: Total colonoscopy with biopsies. ANESTHESIA: Intravenous sedation, propofol infusion, Claudine Elliott CRNA. INDICATION: This 62-year-old white woman is a patient of Dr. Ishmael Mccall and admitted by Dr. Hernandez on October 09, 2017, with complaints of abdominal pain, which have been worsening and constipation issues. She has a distant history of spina bifida and longstanding chronic pain symptoms, for which she takes opioids. A CT scan was performed, which showed inflammatory changes of the transverse colon to the lesser extent of the left colon. She has been given a bowel prep and is to undergo colonoscopy at this point. She understands the risks of bleeding, infection, and perforation related to colonoscopy and wished to proceed. FINDINGS: Ischemic colitis was clearly demonstrated, which is rather significant disease included all the transverse colon, some of the proximal descending colon, but sparing of the right colon and sigmoid and rectum. There was no sign of cancer. There was a small polyp of the rectum. This was excised independently. DESCRIPTION OF PROCEDURE: The patient was brought to the endoscopy suite and placed in lateral decubitus position given intravenous sedation with propofol infusional technique by the mobile marketing manager. Digital rectal examination was normal. An Olympus video colonoscope was passed in the rectum and a fair amount of liquid like green fluid was noted. This was suctioned free. The rectum and sigmoid were entirely Electronically Signed By: CLAUDINE AMARO MD 10/14/17 1156 PATIENT NAME: FARZAD WHITT OPERATIVE REPORT DATE OF : 55 REPORT #: [id number] PHYSICIAN: CLAUDINE AMARO MD PCP: ISHMAEL MCCALL DO REPORT IS CONFIDENTIAL AND NOT TO BE RELEASED WITHOUT AUTHORIZATION [facility] [address] [place], [place] [address] Signed normal. Scope was passed into the left colon where areas of patchy ischemic colitis was noted. The scope was advanced beyond the splenic flexure to the transverse colon where florid ischemic colitis circumferentially located and was noted. The scope was advanced beyond this ultimately to the right colon were once again normal mucosa was noted. Biopsies were obtained of the right colon. The scope was withdrawn and biopsies taken of the ischemic segment as well. This ischemia extended from essentially all the transverse colon down to the mid descending colon I believe. Sigmoid and rectal biopsies were obtained as well. There was a very small polyp of the rectum, which was hyperplastic. This was excised independently. The scope was removed and the patient was taken to recovery room in good condition. CONCLUDING DIAGNOSIS: Diagnosis is consistent with ischemic colitis as suspected. We would recommend continued good hydration, liquid diet, advanced to low-fiber diet, likely best treated with oral antibiotics for now and no steroids. We would recommend repeat colonoscopy in 4-6 weeks to assure that stricture has not developed. Would expect complete mucosal healing within 2 weeks generally speaking. Risk factors such as smoking should be avoided as much as possible obviously. We will review this with Dr. Hernandez also. Claudine Amaro MD JM/MODL /[id number] cc: DO Gabbie Gordon MD Copies: ISHMAEL MCCALL LOHITH VEERAPPA MD ~ Electronically Signed By: CLAUDINE AMARO MD 10/14/17 1156 PATIENT NAME: FARZAD WHITT OPERATIVE REPORT DATE OF : 55 REPORT #: [id number] PHYSICIAN: CLAUDINE AMARO MD PCP: ISHMAEL MCCALL DO REPORT IS CONFIDENTIAL AND NOT TO BE RELEASED WITHOUT AUTHORIZATION
== END 2017-10-12 12:00 | disposition home or self-care (01) | DRG 394 ==
LOC: ED 13:21 → CCU 18:05 → MS 10-11 14:30
PROVIDERS: Surgery; ADMIT Internal Medicine
PROC: 0DBN8ZX Excision of Sigmoid Colon, Via Natural or Artificial Opening Endoscopic, Diagnostic (ICD-10-PCS; 2017-10-11)
PROC: 0DBP8ZX Excision of Rectum, Via Natural or Artificial Opening Endoscopic, Diagnostic (ICD-10-PCS; 2017-10-11)
PROC: 0DBF8ZX Excision of Right Large Intestine, Via Natural or Artificial Opening Endoscopic, Diagnostic (ICD-10-PCS; principal; 2017-10-11 09:30)
DX: K55.039 Acute (reversible) ischemia of large intestine, extent unspecified (principal); R65.10 Systemic inflammatory response syndrome (SIRS) of non-infectious origin without acute organ dysfunction; F11.20 Opioid dependence, uncomplicated; K62.1 Rectal polyp; Q05.9 Spina bifida, unspecified; K59.03 Drug induced constipation; T40.2X5A Adverse effect of other opioids, initial encounter; N32.89 Other specified disorders of bladder; G89.4 Chronic pain syndrome; F41.8 Other specified anxiety disorders; G44.89 Other headache syndrome; I10 Essential (primary) hypertension; K21.9 Gastro-esophageal reflux disease without esophagitis; E78.5 Hyperlipidemia, unspecified; M79.7 Fibromyalgia; E66.9 Obesity, unspecified; Z68.26 Body mass index [BMI] 26.0-26.9, adult; Z79.1 Long term (current) use of non-steroidal anti-inflammatories (NSAID); Z79.899 Other long term (current) drug therapy; Z88.5 Allergy status to narcotic agent; Z88.2 Allergy status to sulfonamides; Z88.8 Allergy status to other drugs, medicaments and biological substances
CPT/HCPCS: 36415; 74176; 80053; 81001; 83690; 83735; 85025; 87040; 88305; 93005; 93010; J0744; J1650; J1885; J2405; J2704; J3475; J7030; J7120

== ENCOUNTER 2017-12-22 06:15 | Day surgery (SDC) | payer MEDICARE, BC ==
[~2017-12-22] VITALS: Ht 167.6 cm; Wt 72.6 kg
[~2017-12-22 06:15] MED LIST changes: +BENADRYL25 MG PO; +BUSPIRONE HCL7.5 MG PO; +CIPROFLOXACIN500 MG PO; +DICYCLOMINE HCL10 MG PO; +GAS-X125 M1 PO; +MELOXICAM7.5 MG PO; +METRONIDAZOLE500 MG PO; +OXYCODONE HCL10 MG PO; +OXYCONTIN30 MG PO; +ROXICODONE30 MG PO; +SIMVASTATIN40 MG PO; +TIZANIDINE HCL4 MG PO
--- NOTE | 2017-12-22 08:31 | NUR ---
12/22/17 0831 Amberly Milliagn 0802 PT ARRIVED TO PACU, PT DROWSY, AWAKE OFF AND ON. LR INFUSING TO RIGHT AC. O2 IN PLACE, BREATHING EVEN AND NON LABORED. PT ABD FIRM AND SLIGHTLY DISTENDED, PT DENIES PAIN AND NAUSEA. 0809 PT D/C O2 DUE TO CLAUSTROPHOBIA, PT MAINTAINING SATS IN MID 90'S ON ROOM AIR. DR AMARO AT BEDSIDE. 0820 PT TAKING ORAL FLUIDS WITHOUT DIFFICULTY, DENIES NAUSEA.
--- NOTE | 2017-12-22 08:58 | OR ---
[facility] [address] [place], [place] [address] Signed DATE OF OPERATION: 12/22/2017 SURGEON: Claduine Amaro MD PREOPERATIVE DIAGNOSIS: History of ischemic colitis in September 2017. POSTOPERATIVE DIAGNOSIS: Scattered diverticula of sigmoid. No evidence of recurrent/persistent ischemic colitis. No evidence of stricture. PROCEDURE: Colonoscopy with biopsy. ANESTHESIA: Intravenous sedation with fentanyl 100 mcg, Versed 5 mg. INDICATION: This 62-year-old white woman is a patient of Dr. Ishmael Mccall, was hospitalized in September 2017 with abdominal pain. A colonoscopy was performed on October 09, 2017 showing clinical appearance of ischemic colitis. Pathologic specimens did not really describe colitis at all, only melanosis coli, which was surprising given the clinical appearance of the colon. Her other medical problems include hypertension, reflux disease, asthma, and episodes of depression. 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 She was admitted to undergo colonoscopy to assess resolution of colitis, assess for stricture or other problem. She understands the risks of bleeding, infection, and perforation and wished to proceed. FINDINGS: The prep was excellent. Colonoscopy was undertaken to the mid ascending colon. There were diverticula of the sigmoid, but no other findings and specifically no finding of colitis or stricture in any way. DESCRIPTION OF PROCEDURE: The patient was brought to the endoscopy suite and placed in lateral decubitus position given intravenous sedation to the point of slurred speech and nystagmus. Pre-procedure Flagyl and Ancef were given on the basis of her joint replacement history. Digital rectal examination was normal. An Olympus video colonoscope was passed in the rectum and manipulated throughout the Electronically Signed By: CLAUDINE AMARO MD 12/22/17 0858 PATIENT NAME: FARZAD WHITT OPERATIVE REPORT DATE OF : 55 REPORT #: [id number] PHYSICIAN: CLAUDINE AMARO MD PCP: ISHMAEL MCCALL DO REPORT IS CONFIDENTIAL AND NOT TO BE RELEASED WITHOUT AUTHORIZATION [facility] [address], [place] [address] Signed colon. Diverticula were noted in the sigmoid. The scope was advanced beyond the transverse colon to the hepatic flexure and into the right colon. To the patient discomfort and so forth passage completely to the cecum was not undertaken given the indication for the procedure itself. Biopsies were taken of the ascending colon. The scope was withdrawn from that point and examination of the mucosa showed no sign of ischemic colitis or stricture. Biopsies were taken throughout. Retroflexed view in the rectum was normal as well. The scope was removed and the patient was taken to recovery in good condition. CONCLUSION DIAGNOSIS: Diverticular changes of the sigmoid. No evidence of ischemic colitis. PLAN: Recommend high-fiber diet. She will return to the ongoing care of Dr. Mccall. MD PILY Pereira/JAZZL /[id number] Copies: ~ Electronically Signed By: CLAUDINE AMARO MD 12/22/17 0858 PATIENT NAME: FARZAD WHITT OPERATIVE REPORT DATE OF : 55 REPORT #: [id number] PHYSICIAN: CLAUDINE AMARO MD PCP: ISHMAEL MCCALL DO REPORT IS CONFIDENTIAL AND NOT TO BE RELEASED WITHOUT AUTHORIZATION
== END 2017-12-22 08:52 | disposition home or self-care (01) ==
LOC: DS 06:15 → OPS 06:15 → DS 06:45 → OPS 06:45
PROVIDERS: Surgery
PROC: 0DBL8ZX Excision of Transverse Colon, Via Natural or Artificial Opening Endoscopic, Diagnostic (ICD-10-PCS; 2017-12-22)
PROC: 0DBM8ZX Excision of Descending Colon, Via Natural or Artificial Opening Endoscopic, Diagnostic (ICD-10-PCS; 2017-12-22)
PROC: 0DBK8ZX Excision of Ascending Colon, Via Natural or Artificial Opening Endoscopic, Diagnostic (ICD-10-PCS; principal; 2017-12-22 06:45)
DX: K51.90 Ulcerative colitis, unspecified, without complications (principal); K63.89 Other specified diseases of intestine; K57.30 Diverticulosis of large intestine without perforation or abscess without bleeding; I10 Essential (primary) hypertension; F32.9 Major depressive disorder, single episode, unspecified; K21.9 Gastro-esophageal reflux disease without esophagitis; M79.7 Fibromyalgia; Q05.9 Spina bifida, unspecified; J45.909 Unspecified asthma, uncomplicated; R41.3 Other amnesia; Z88.2 Allergy status to sulfonamides; Z87.891 Personal history of nicotine dependence
CPT/HCPCS: 99153; G0500; J0690; J2250; J3010; J7120